=== PATIENT | male | born 1985 | race Two or more races ===

== ENCOUNTER 2018-01-18 17:07 | Emergency (ER) | payer SELFPAY ==
[~2018-01-18] VITALS: Ht 172.7 cm; Wt 74.8 kg
[2018-01-18 17:30] VITALS: BP 140/86
[2018-01-18] MEDS ORDERED: cefTRIAXone SOD 1,000 MG VL IM ONE (19:45)
== END 2018-01-18 20:43 | disposition home or self-care (01) ==
LOC: ER 17:20
DX: K02.9 Dental caries, unspecified (principal); B99.9 Unspecified infectious disease
CPT/HCPCS: 96372; 99283; J0696